=== PATIENT | male | born 1965 | race Caucasian/White ===

== ENCOUNTER → 2020-08-12 08:57 | Outpatient (BNVA) | payer OTHER, SELFPAY | PROVIDERS: PCP Family Medicine; Referring Provider Family Medicine; Visit Provider Psychiatry & Neurology Neurology | DX: Z13.89 Encounter for screening for other disorder (principal) ==

== ENCOUNTER → 2020-08-14 13:00 | Outpatient (REF) | payer OTHER, SELFPAY ==
--- NOTE | 2020-08-14 12:55 | CA_ITS ---
Transthoracic Echocardiogram Patient (Last, First, Middle): Nii Mohan R Gender: Male Date of : 1965 Age: 54 Procedure Date: 08/14/2020 Procedure Type: Transthoracic Echocardiogram Location: OP Height: 190.5 cm Weight: 124.74 kg BSA: 2.51 m2 Heart Rate: bpm BP: 112 / 74 mmHg Last Model Department Supervisor: TIMOTHY Munoz MD: Johnson Coronel MD Chair Maker: Jon Hare MD Symptoms: I48.0 Study Quality: Good ECG Rhythm: Sinus Conclusions: - 1. Moderately dilated left ventricle with mild LV systolic dysfunction with LVEF of 45-50% with grade 1 diastolic dysfunction 2. Normal cardiac valvular Doppler 3. Normal RV systolic pressure 4. No pericardial effusion Findings Left Ventricle Moderately increased left ventricular cavity size. There is normal left ventricular wall thickness. The left ventricular systolic function is mildly decreased. The visually estimated ejection fraction is between 45-50%. Spectral Doppler is indicative of an impaired relaxation filling pattern. E/E prime ratio is <8, consistent with normal filling pressures. Evidence suggests grade I (mild) diastolic dysfunction. Right Ventricle Normal right ventricular cavity size and systolic function. Atria Both atria are normal in size. There is no evidence of interatrial shunt. Aortic Valve Normal aortic valve structure and function. There is no aortic valve stenosis. There is no aortic valve regurgitation. Mitral Valve Normal mitral valve structure and function. There is trace mitral valve regurgitation. There is no mitral valve stenosis. Pulmonic Valve The pulmonic valve was not well visualized. Tricuspid Valve Likely normal tricuspid valve structure and function. There is trace tricuspid valve regurgitation. The right ventricular systolic pressure is normal. The right ventricular systolic pressure is 28 mmHg. Normal right atrial pressure. There is no evidence of pulmonary hypertension. Great Vessels All visible segments of the aorta are normal in size. The pulmonary artery was not well visualized. Venous The inferior vena cava is normal in size. Pericardium/Pleural There is no evidence of pericardial effusion. Prior Study Comparison Changes noted compared to prior study dated: 08/14/2019. LV systolic function has improved Measurements 2D Linear Measurements RVIDd: 3.19 RVIDd Index: 1.27 IVSd: 0.97 0.6-0.9/0.6-1.0 cm LVIDd: 6.83 3.9-5.3/4.2-5.9 cm LVIDd Index: 2.72 2.4-3.2/2.2-3.1 cm/m2 LVIDs: 5.16 2.0-3.6 cm LVPWd: 0.97 0.7-1.1 cm Ao Root: 3.30 2.1-3.5 cm LA Diam: 4.80 2.7-3.8/3.0-4.0 cm LAIDs Index: 1.91 1.5-2.3 cm/m2 LV Mass: 370.87 67-162/88-224 g LV Mass Index: 147.76 43-95/49-115 g/m2 LVOT Diam: 2.70 3.0+(-)1.3 cm 2D Systolic Function EF 4C: 52.60 >55% EF 2C: 42.10 >55% EF BiP: 50.20 >55% Mitral Valve MV Pk E: 0.66 MV PK A: 0.84 MV Decel Time: 144.00 E/A: 0.80 E'Lateral: 9.46 E'Medial: 6.09 E/E' Med: 10.80 E/E' Lat: 6.90 Aortic Valve AoV Pk Alex: 1.26 AoV Mn Alex: 0.93 AoV VTI: 0.25 AoV Pk Grad: 6.00 Aov Mn Grad: 4.00 STELLA Cont.VTI: 3.52 LVOT LVOT Pk Alex: 0.80 LVOT Mn Alex: 0.59 LVOT VTI: 0.15 LVOT Pk Grad: 3.00 LVOT Mn Grad: 2.00 LVOT Diam: 2.70 LVOT Area: 5.73 Diastolic Function MV Pk E: 0.66 MV Pk A: 0.84 E/A: 0.80 E'Medial: 6.09 E/E' Med: 10.80 E' Laterial: 9.46 E/E' Lat: 6.90 Tricuspid Valve TR Pk Alex: 2.24 TR Pk Grad: 20.00 RA Press: 8.00 RVSP: 28.00 Great Vessels Aorta Ao Root-2D: 3.30 2.0-3.7 cm Ao Asc: 3.70 2.1-3.4 cm Ao Arch: 3.10 Updated in Other Vendor System with Status of Final Jon Hare MD electronically signed on 08/15/2020 1:06:44 PM with status of Final
--- NOTE | 2020-08-14 14:00 | ECG_ITS ---
Hook-up date: 2020-08-14 13:48:00 Duration: 25:08:00 Test Indications: PAF Medications: [id number] QRS complexes 99 Ventricular ectopics which represent <1 % of total QRS comp. 26 Supraventricular ectopics which represent <1 % of total QRS comp. * Paced QRS complexs which represent % of total QRS comp. VENTRICULAR ECTOPY 93 Isolated 0 Bigeminal Cycles 1 Couplets 1 Runs 4 Beats in Runs 4 Beats LONGEST at 155 BPM at 05:35:00 2020-08-15 4 Beats FASTEST at 155 BPM at 05:35:00 2020-08-15 SUPRAVENTRICULAR ECTOPY 10 Isolated 0 Couplets 1 Runs 16 Beats in Runs 16 Beats LONGEST at 111 BPM at 15:47:03 2020-08-14 16 Beats FASTEST at 111 BPM at 15:47:03 2020-08-14 HEART RATES 64 MIN at 01:33:04 2020-08-15 84 AVG 128 MAX at 11:34:10 2020-08-15 LONGEST RR 0.9840 secs at 23:06:54 2020-08-14 S-T LEVELS Channel 1 - 128 mm at 13:48:00 2020-08-14 - 128 mm at 13:48:00 2020-08-14 Channel 2 - 128 mm at 13:48:00 2020-08-14 - 128 mm at 13:48:00 2020-08-14 Channel 3 - 128 mm at 03:30:71 -- - 128 mm at 03:30:71 Basic rhythm Normal sinus rhythm No long pause or profound bradycardia No sustained Atrial fibrillation One 4 beats episode of NSVT at 155 bpm No diary submitted Referred By: Johnson Coronel Overread By: GIANLUCA LEMA MD
== END ==
LOC: HO.CARD 13:00
PROVIDERS: Visit Provider Internal Medicine
DX: I48.0 Paroxysmal atrial fibrillation (principal)
CPT/HCPCS: 93225; 93226; 93306

== ENCOUNTER → 2020-09-25 15:15 | Outpatient (BNVA) | payer OTHER, SELFPAY | PROVIDERS: PCP Family Medicine; Visit Provider Internal Medicine | DX: Z76.89 Persons encountering health services in other specified circumstances (principal) ==

== ENCOUNTER → 2020-09-30 20:28 | Outpatient (REF) | payer OTHER, SELFPAY | LOC: HO.SL 20:28 | PROVIDERS: PCP Family Medicine; Visit Provider Psychiatry & Neurology Neurology | DX: G47.00 Insomnia, unspecified (principal); G47.19 Other hypersomnia; G47.9 Sleep disorder, unspecified | CPT/HCPCS: 95810 ==

== ENCOUNTER → 2020-10-28 10:46 | Outpatient (BNVA) | payer OTHER, SELFPAY | PROVIDERS: PCP Family Medicine; Visit Provider Psychiatry & Neurology Neurology ==

== ENCOUNTER → 2020-11-04 08:30 | Outpatient (BNVA) | payer OTHER, SELFPAY | PROVIDERS: PCP Family Medicine; Visit Provider Nurse Practitioner Family ==

== ENCOUNTER → 2020-11-25 09:37 | Outpatient (BNVA) | payer OTHER, SELFPAY | PROVIDERS: PCP Family Medicine; Visit Provider Nurse Practitioner Family ==

== ENCOUNTER → 2020-12-23 11:17 | Outpatient (BNVA) | payer OTHER, SELFPAY | PROVIDERS: PCP Family Medicine; Visit Provider Psychiatry & Neurology Neurology ==

== ENCOUNTER → 2021-02-17 09:51 | Outpatient (BNVA) | payer OTHER, SELFPAY | PROVIDERS: PCP Family Medicine; Visit Provider Nurse Practitioner Family ==

== ENCOUNTER → 2021-03-19 13:00 | Outpatient (REF) | payer OTHER, SELFPAY ==
--- NOTE | 2021-03-19 13:03 | CA_ITS ---
Transthoracic Echocardiogram Patient (Last, First, Middle): Nii Mohan R Gender: Male Date of : 1965 Age: 55 Procedure Date: 03/19/2021 Procedure Type: Transthoracic Echocardiogram Location: OP Height: 190.5 cm Weight: 124.74 kg BSA: 2.51 m2 Heart Rate: bpm BP: 123 / 78 mmHg Raw Stock Drier Tender: PARUL Referring MD: Johnson Coronel MD [employer] Shop Machine Repairer: Jon Hare MD Symptoms: I42.8 - Other cardiomyopathies Study Quality: Fair ECG Rhythm: Sinus Conclusions: - 1. Moderately dilated left ventricle with moderate LV systolic dysfunction with LVEF of 35-40% with impaired relaxation filling pattern 2. Mildly dilated left atrium 3. Normal cardiac valvular Doppler 4. No gross pericardial effusion Findings Left Ventricle Moderately increased left ventricular cavity size. There is normal left ventricular wall thickness. The left ventricular systolic function is moderately decreased. The visually estimated ejection fraction is between 35 40%. There is moderate global hypokinesis. Spectral Doppler is indicative of an impaired relaxation filling pattern. E/E prime ratio is between 8 and 15 consistent with indeterminate filling pressures. Right Ventricle Normal right ventricular cavity size and systolic function. Atria The left atrium is mildly dilated. There is no evidence of interatrial shunt. The right atrium is normal in size. Aortic Valve The aortic valve structure and function is likely normal. There is no aortic valve stenosis. There is no aortic valve regurgitation. Mitral Valve Normal mitral valve structure and function. There is no mitral valve regurgitation. There is no mitral valve stenosis. Pulmonic Valve The pulmonic valve was not well visualized. Tricuspid Valve Likely normal tricuspid valve structure and function. Tricuspid regurgitation envelope is inadequate for calculation of right ventricular systolic pressure. Great Vessels All visible segments of the aorta are normal in size. The pulmonary artery was not well visualized. Venous The inferior vena cava is normal in size and collapses greater than 50% with inspiration. Pericardium/Pleural There is no evidence of pericardial effusion. Prior Study Comparison Changes noted compared to prior study dated: 08/14/2020. LV systolic function has reduced Measurements M-Mode Liner Measurements Normals - Women/Men AOV Cusps: 2.30 1.5-2.6 cm/m2 2D Linear Measurements IVSd: 0.93 0.6-0.9/0.6-1.0 cm LVIDd: 7.01 3.9-5.3/4.2-5.9 cm LVIDd Index: 2.79 2.4-3.2/2.2-3.1 cm/m2 LVIDs: 6.22 2.0-3.6 cm LVPWd: 0.96 0.7-1.1 cm Ao Root: 3.20 2.1-3.5 cm LA Diam: 4.30 2.7-3.8/3.0-4.0 cm LAIDs Index: 1.71 1.5-2.3 cm/m2 LV Mass: 374.67 67-162/88-224 g LV Mass Index: 149.27 43-95/49-115 g/m2 LVOT Diam: 2.60 3.0+(-)1.3 cm 2D Systolic Function EF 4C: 35.50 >55% EF 2C: 27.50 >55% Mitral Valve MV Pk E: 0.74 MV PK A: 1.10 MV Decel Time: 264.00 E/A: 0.70 E'Lateral: 7.72 E'Medial: 6.42 E/E' Med: 11.50 E/E' Lat: 9.60 PHT: 77.00 MVA PHT: 2.86 Decel [place]: 2.81 Aortic Valve AoV Pk Alex: 1.55 AoV Mn Alex: 1.12 AoV VTI: 0.31 AoV Pk Grad: 10.00 Aov Mn Grad: 6.00 STELLA Cont.VTI: 2.71 LVOT LVOT Pk Alex: 0.75 LVOT Mn Alex: 0.59 LVOT VTI: 0.16 LVOT Pk Grad: 2.00 LVOT Mn Grad: 1.00 LVOT Diam: 2.60 LVOT Area: 5.31 Diastolic Function MV Pk E: 0.74 MV Pk A: 1.10 E/A: 0.70 E'Medial: 6.42 E/E' Med: 11.50 E' Laterial: 7.72 E/E' Lat: 9.60 Tricuspid Valve RA Press: 3.00 Great Vessels Aorta Ao Root-2D: 3.20 2.0-3.7 cm Ao Asc: 3.70 2.1-3.4 cm Pulmonary Valve PV Pk Alex: 1.26 Peak PV Grad: 6.00 Updated in Other Vendor System with Status of Final Jon Hare MD electronically signed on 03/20/2021 5:19:27 PM with status of Final
--- NOTE | 2021-03-19 13:03 | ECG_ITS ---
Hook-up date: 2021-03-19 13:44:00 Duration: 24:13:00 Test Indications: PAF Medications: [id number] QRS complexes 237 Ventricular ectopics which represent <1 % of total QRS comp. 95 Supraventricular ectopics which represent <1 % of total QRS comp. * Paced QRS complexs which represent % of total QRS comp. VENTRICULAR ECTOPY 235 Isolated 0 Bigeminal Cycles 1 Couplets 0 Runs 0 Beats in Runs * Beats LONGEST at * BPM at :: -- * Beats FASTEST at * BPM at :: -- SUPRAVENTRICULAR ECTOPY 95 Isolated 0 Couplets 0 Runs 0 Beats in Runs * Beats LONGEST at * BPM at :: -- * Beats FASTEST at * BPM at :: -- HEART RATES 62 MIN at 01:18:43 2021-03-20 85 AVG 127 MAX at 18:52:31 2021-03-19 LONGEST RR 1.0000 secs at 04:38:20 2021-03-20 S-T LEVELS Channel 1 - 128 mm at 13:44:00 2021-03-19 - 128 mm at 13:44:00 2021-03-19 Channel 2 - 128 mm at 13:44:00 2021-03-19 - 128 mm at 13:44:00 2021-03-19 Channel 3 - 128 mm at 03:30:31 -- - 128 mm at 03:30:31 Basic rhythm Normal sinus rhythm No long pause or profound bradycardia Occasional Premature ventricular complexes No sustained Atrial fibrillation Patient did not report any symptoms in the diary Referred By: Johnson Coronel Overread By: GIANLUCA LEMA MD
== END ==
LOC: HO.CARD 13:00
PROVIDERS: Visit Provider Internal Medicine
DX: I48.0 Paroxysmal atrial fibrillation (principal); I42.8 Other cardiomyopathies
CPT/HCPCS: 93225; 93226; 93306

== ENCOUNTER → 2021-03-31 14:59 | Outpatient (BNVA) | payer OTHER, SELFPAY | PROVIDERS: PCP Family Medicine; Referring Provider Family Medicine; Visit Provider Internal Medicine | DX: I48.0 Paroxysmal atrial fibrillation (principal); I42.8 Other cardiomyopathies; G47.33 Obstructive sleep apnea (adult) (pediatric); Z99.89 Dependence on other enabling machines and devices | CPT/HCPCS: 93005 ==

== ENCOUNTER → 2021-06-30 08:21 | Outpatient (BNVA) | payer OTHER, SELFPAY | PROVIDERS: PCP Internal Medicine; Visit Provider Psychiatry & Neurology Neurology ==

== ENCOUNTER → 2021-07-21 08:43 | Outpatient (BNVA) | payer OTHER, SELFPAY | PROVIDERS: PCP Internal Medicine; Visit Provider Psychiatry & Neurology Neurology ==

== ENCOUNTER → 2021-09-30 13:44 | Outpatient (BNVA) | payer OTHER, SELFPAY | PROVIDERS: PCP Internal Medicine; Visit Provider Internal Medicine | DX: I48.0 Paroxysmal atrial fibrillation (principal); I42.8 Other cardiomyopathies; G47.33 Obstructive sleep apnea (adult) (pediatric); U09.9 Post COVID-19 condition, unspecified; R06.09 Other forms of dyspnea; Z99.89 Dependence on other enabling machines and devices | CPT/HCPCS: 93005 ==

== ENCOUNTER → 2021-11-18 14:54 | Outpatient (BNVA) | payer OTHER, SELFPAY | PROVIDERS: PCP Internal Medicine; Visit Provider Internal Medicine | DX: I48.0 Paroxysmal atrial fibrillation (principal); I42.8 Other cardiomyopathies; G47.33 Obstructive sleep apnea (adult) (pediatric); R06.09 Other forms of dyspnea; U09.9 Post COVID-19 condition, unspecified; Z99.89 Dependence on other enabling machines and devices | CPT/HCPCS: 93005 ==

== ENCOUNTER → 2022-01-19 13:55 | Outpatient (REF) | payer OTHER, SELFPAY ==
--- NOTE | 2022-01-19 13:59 | CA_ITS ---
Transthoracic Echocardiogram Patient (Last, First, Middle): Nii Mohan R Gender: Male Date of : 1965 Age: 56 Procedure Date: 01/19/2022 Procedure Type: Transthoracic Echocardiogram Location: OP Height: 190.5 cm Weight: 120.2 kg BSA: 2.47 m2 Heart Rate: bpm BP: 90 / 62 mmHg Laundry Aide: TIARRA Referring MD: Johnson Coronel MD Symptoms: I42.8 - Other cardiomyopathies Study Quality: Fair ECG Rhythm: Sinus Conclusions: - The left ventricular systolic function is severely decreased. The visually estimated ejection fraction is between 20-25%. - Evidence suggests grade III (severe) diastolic dysfunction. - There is low normal right ventricular systolic function. - Mild pulmonary hypertension is present. Findings Left Ventricle Moderately increased left ventricular cavity size. There is normal left ventricular wall thickness. The left ventricular systolic function is severely decreased. The visually estimated ejection fraction is between 20 25%. There is severe global hypokinesis. E/E prime ratio is >15, consistent with elevated filling pressures. Evidence suggests grade III (severe) diastolic dysfunction. Right Ventricle Normal right ventricular cavity size. There is low normal right ventricular systolic function. Atria Both atria are normal in size. Aortic Valve There is a normal trileaflet aortic valve. There is no aortic valve stenosis. There is no aortic valve regurgitation. Mitral Valve The mitral valve appears normal. There is mild mitral valve regurgitation. There is no mitral valve stenosis. Pulmonic Valve The pulmonic valve was not well visualized. Tricuspid Valve There is trace tricuspid valve regurgitation. The right ventricular systolic pressure is 38 mmHg. Mild pulmonary hypertension is present. Great Vessels The asc aorta is normal in size. Venous The inferior vena cava was not well visualized. Pericardium/Pleural There is no evidence of pericardial effusion. Prior Study Comparison Changes noted compared to prior study dated: 03/19/2021. LVEF is lower. Measurements M-Mode Liner Measurements Normals - Women/Men LVIDd: 7.53 3.9-5.3/4.2-5.9 cm LVIDd Index: 3.05 1.9-3.2 cm/m2 LVIDs: 6.05 2.0-3.8 cm M-Mode Volumes LV EDV: 301.00 LV ESV: 183.00 2D Linear Measurements IVSd: 0.96 0.6-0.9/0.6-1.0 cm LVIDd: 7.17 3.9-5.3/4.2-5.9 cm LVIDd Index: 2.90 2.4-3.2/2.2-3.1 cm/m2 LVIDs: 5.70 2.0-3.6 cm LVPWd: 1.03 0.7-1.1 cm LA Diam: 5.10 2.7-3.8/3.0-4.0 cm LAIDs Index: 2.06 1.5-2.3 cm/m2 LV Mass: 417.02 67-162/88-224 g LV Mass Index: 168.83 43-95/49-115 g/m2 LVOT Diam: 2.70 3.0+(-)1.3 cm 2D Systolic Function EF 4C: 32.80 >55% EF 2C: 27.90 >55% M-Mode Systolic Function FS: 19.70 27-47/25-43% Mitral Valve MV Pk E: 1.29 MV PK A: 0.44 MV Decel Time: 103.00 E/A: 2.90 E'Lateral: 8.92 E'Medial: 4.03 E/E' Med: 32.00 E/E' Lat: 14.50 PHT: 30.00 MVA PHT: 7.33 Decel [place]: 12.52 MR Vol - PW Dopp: 17.70 MR VTI: 1.18 MR ERO: 15.00 MR Alias Alex: 0.27 MR RAD: 0.60 Aortic Valve AoV Pk Alex: 1.00 AoV Pk Grad: 4.00 LVOT LVOT Pk Alex: 0.69 LVOT Mn Alex: 0.45 LVOT VTI: 0.13 LVOT Pk Grad: 2.00 LVOT Mn Grad: 1.00 LVOT Diam: 2.70 LVOT Area: 5.73 Diastolic Function MV Pk E: 1.29 MV Pk A: 0.44 E/A: 2.90 E'Medial: 4.03 E/E' Med: 32.00 E' Laterial: 8.92 E/E' Lat: 14.50 Right Ventricle TAPSE (mm): 2.01 TVS' Alex: 12.90 Tricuspid Valve TR Pk Alex: 2.95 TR Pk Grad: 35.00 RA Press: 3.00 RVSP: 38.00 Great Vessels Aorta Sinus of Valsalva: 3.60 2.0-3.5 cm Ao Asc: 3.30 2.1-3.4 cm Updated in Other Vendor System with Status of Final Johnson Coronel MD electronically signed on 01/20/2022 9:51:41 AM with status of Final
--- NOTE | 2022-01-19 13:59 | HM_ITS ---
Conclusion: 1. Patient was monitored for total period of 5 days and 19 hours 2. Baseline was normal sinus rhythm with average heart rate of 99 beats per minute 3. 74 episodes of short burst of wide complex rhythm consistent with nonsustained VT longest lasting 11 beats at 200 beats per minute, consistent with frequent episodes of nonsustained VT 4. Twenty episodes of supraventricular tachycardia, longest lasting 9 beats 5. Total of 46,134 PVCs accounting for 5.4% total burden account for frequent PVCs 6. One patient reported event correlated MTDD
== END ==
LOC: HO.CARD 13:55
PROVIDERS: PCP Internal Medicine; Visit Provider Internal Medicine
DX: I42.8 Other cardiomyopathies (principal)
CPT/HCPCS: 93242; 93306

== ENCOUNTER 2022-02-05 10:14 | Outpatient (REF) | payer OTHER, SELFPAY ==
[2022-02-05 11:54] LABS: Anion Gap 12 (12-20); Blood Urea Nitrogen 22 mg/dL (9-16); Carbon Dioxide 27 mmol/L (22-29); Chloride 107 mmol/L (96-108); Estimated Glomerular Filt Rate 43; Glucose Random 79 mg/dL (60-115); Magnesium 2.2 mg/dL (1.6-2.6); Potassium 4.5 mmol/L (3.3-5.1); Sodium 141 mmol/L (135-145)
== END 2022-02-05 10:15 | disposition home or self-care (01) ==
LOC: HO.LAB 10:14
PROVIDERS: Visit Provider Nurse Practitioner Family
DX: I47.2 Ventricular tachycardia (principal)
CPT/HCPCS: 36415; 80048; 83735

== ENCOUNTER 2022-02-08 12:41 | Outpatient (REF) | payer OTHER, SELFPAY ==
[2022-02-08 15:06] LABS: Anion Gap 12 (12-20); Blood Urea Nitrogen 22 mg/dL (9-16); Calcium 9.7 mg/dL (8.4-10.2); Carbon Dioxide 22 mmol/L (22-29); Chloride 110 mmol/L (96-108); Estimated Glomerular Filt Rate 48; Glucose Random 85 mg/dL (60-115); Potassium 4.6 mmol/L (3.3-5.1); Sodium 139 mmol/L (135-145)
[2022-02-08 15:08] LABS: B Type Natriuretic Peptide 1669 pg/mL (<100)
[2022-02-08 15:18] LABS: D Dimer High Sensitivity < 150 NG/ML
== END 2022-02-08 12:42 | disposition home or self-care (01) ==
LOC: HO.LAB 12:41
PROVIDERS: PCP Internal Medicine; Visit Provider Nurse Practitioner Family
DX: R06.02 Shortness of breath (principal); R06.00 Dyspnea, unspecified; U09.9 Post COVID-19 condition, unspecified; G47.33 Obstructive sleep apnea (adult) (pediatric); I42.8 Other cardiomyopathies; I48.0 Paroxysmal atrial fibrillation; Z98.890 Other specified postprocedural states; Z99.89 Dependence on other enabling machines and devices; Z79.899 Other long term (current) drug therapy
CPT/HCPCS: 36415; 80048; 83880; 85379; 93005

== ENCOUNTER 2022-02-09 09:57 | Emergency (ER) | payer OTHER, SELFPAY ==
--- NOTE | ~2022-02-09 | XR_ITS ---
EXAMINATION: XR CHEST CLINICAL INFORMATION: Shortness breath COMPARISON: None TECHNIQUE: 2 views of the chest were obtained. FINDINGS: Cardiomegaly. Pulmonary vascularity within normal limits. No parenchymal consolidation, pulmonary edema or pleural effusion. No pneumothorax. No acute or suspicious osseous abnormalities. XR/XR chest 2V IMPRESSION: No acute findings. Cardiomegaly without evidence of decompensated heart failure.
[2022-02-09 10:15] VITALS: BP 98/74; PULSE 93; RESP 19; TEMP 36.6; O2SAT 95; BMI 34.2
--- NOTE | 2022-02-09 10:18 | ECG_ITS ---
Test Reason : sob Blood Pressure : / mmHG Vent. Rate : 090 BPM Atrial Rate : 090 BPM P-R Int : 196 ms QRS Dur : 098 ms QT Int : 400 ms P-R-T Axes : 032 -38 002 degrees QTc Int : 489 ms Normal sinus rhythm Left axis deviation Inferior infarct , age undetermined Anterior infarct (cited on or before 06-NOV-2019) Abnormal ECG When compared with ECG of 30-JAN-2020 10:27, No significant change was found Referred By: Generic ED Physician Electronically Signed By:GIANLUCA LEMA MD
[2022-02-09 10:50] LABS: MANUAL DIFF FLAG NO
[2022-02-09 11:06] LABS: Prothrombin Time 23.6 SEC (9.9-13.0)
[2022-02-09 11:11] LABS: Alanine Aminotransferase 39 U/L (0-40); Albumin Level 4.1 g/dL (3.5-5.0); Alkaline Phosphatase 58 U/L (39-117); Anion Gap 12 (12-20); Aspartate Amino Transferase 22 U/L (5-37); Bilirubin Direct 0.3 mg/dL (0.0-0.5); Bilirubin Total 0.9 mg/dL (0.0-1.0); Blood Urea Nitrogen 22 mg/dL (9-16); Calcium 9.6 mg/dL (8.4-10.2); Carbon Dioxide 23 mmol/L (22-29); Chloride 108 mmol/L (96-108); Creatinine Clr Calc Pharmacy 83.2; Estimated Glomerular Filt Rate 53; Glucose Random 101 mg/dL (60-115); Potassium 4.7 mmol/L (3.3-5.1); Sodium 138 mmol/L (135-145); Total Protein 6.4 g/dL (6.5-8.0)
[2022-02-09 11:17] LABS: Basophils Percent Auto 0.5 % (0-2); Eosinophils Absolute Auto 0.2 X10*3/uL (0.0-0.4); Eosinophils Percent Auto 3.9 % (0-4); Hematocrit 45.4 % (42.0-52.0); Hemoglobin 14.9 g/dl (14.0-18.0); Imm Gran Abs Auto 0.01 X10*3/uL (0.00-0.03); Imm Gran Pct Auto 0.2 % (0.0-0.4); Lymphocytes Absolute Auto 1.1 X10*3/uL (1.2-4.9); Lymphocytes Percent Auto 27.1 % (20-40); Mean Corpuscular HGB Conc 32.8 g/dl (31.0-36.0); Mean Corpuscular Hemoglobin 29.1 pg (27.0-33.0); Mean Corpuscular Volume 88.7 fL (80.0-98.0); Mean Platelet Volume 11.5 fL (9.4-12.4); Monocytes Absolute Auto 0.5 X10*3/uL (0.1-1.2); Monocytes Percent Auto 11.1 % (2-11); Neutrophils Absolute Auto 2.3 x10*3/uL (2.0-8.3); Neutrophils Percent Auto 57.2 % (45-73); Platelet Count 208 X10*3/uL (160-400); Red Blood Count 5.12 X10*6/uL (4.60-5.80); Red Cell Distribution Width 13.2 % (11.0-16.0); White Blood Count 4.1 X10*3/uL (4.8-10.8)
[2022-02-09 11:19] LABS: B Type Natriuretic Peptide 1705 pg/mL (<100); Troponin-I High Sensitivity 9.3 ng/L (<3.5-35.0)
== END 2022-02-09 16:55 | disposition left against medical advice (07) ==
PROVIDERS: Emergency Provider Emergency Medicine; PCP Internal Medicine
DX: R06.02 Shortness of breath (principal); Z79.899 Other long term (current) drug therapy
CPT/HCPCS: 36415; 71046; 80048; 80076; 83880; 84484; 85025; 85610; 93005; 99283

== ENCOUNTER → 2022-02-11 14:27 | Outpatient (BNVA) | payer OTHER, SELFPAY | PROVIDERS: PCP Internal Medicine; Visit Provider Internal Medicine | DX: I47.2 Ventricular tachycardia (principal) ==

== ENCOUNTER 2022-02-12 10:10 | Outpatient (REF) | payer OTHER, SELFPAY ==
--- NOTE | ~2022-02-12 | CT_ITS ---
EXAMINATION: CT CHEST WITHOUT CONTRAST CLINICAL INFORMATION: Shortness of breath COMPARISON: Previous chest x-ray February 2020 TECHNIQUE: Multidetector volumetric CT imaging of the chest was done. Axial MIP volume rendering provided. Sagittal and coronal reformatted images were obtained. This CT examination was performed using dose optimization techniques as appropriate, variously including the following: *Automated exposure control *Adjustment of mA and/or kV according to patient size (this includes techniques or standardized protocols for targeted exams where dose is matched to indication/reason for exam; i.e. extremities or head) *Use of iterative reconstruction technique DLP: 265 mGy-cm FINDINGS: LUNGS: There is mild diffuse groundglass attenuation seen throughout the lungs. There is a small semisolid right upper lobe nodule measuring 3 mm axial image 110 series 8. No increased interstitial markings are seen. No evidence of bronchiectasis. MEDIASTINUM: The heart is enlarged. There is a trace pericardial effusion. The thoracic aorta is normal in caliber. There is diffuse mediastinal lymphadenopathy larger lymph nodes are upper normal in size. Evaluation for hilar adenopathy is limited without IV contrast and there may be small bilateral hilar lymph nodes as well. PLEURA: There is no pleural effusion. No pleural mass or thickening. AXILLA: No lymphadenopathy. UPPER ABDOMEN: There may be diverticulosis of the colon. OSSEOUS STRUCTURES: There are degenerative changes of the spine. CT/CT chest wo con IMPRESSION: Enlarged heart. Diffuse increased groundglass attenuation in the lungs. Chest CT appearance is nonspecific but most suggestive of pneumonitis. Diffuse mediastinal lymphadenopathy. Fleischner guidelines were followed.
== END 2022-02-12 10:11 | disposition home or self-care (01) ==
LOC: HO.CT 10:10
PROVIDERS: Visit Provider Nurse Practitioner Family
DX: R06.02 Shortness of breath (principal); R06.09 Other forms of dyspnea; U09.9 Post COVID-19 condition, unspecified
CPT/HCPCS: 71250

== ENCOUNTER 2022-02-17 08:56 | Outpatient (REF) | payer OTHER, SELFPAY ==
[2022-02-17 09:59] LABS: MANUAL DIFF FLAG NO
[2022-02-17 10:35] LABS: Basophils Percent Auto 0.1 % (0-2); Eosinophils Percent Auto 0.1 % (0-4); Hematocrit 47.9 % (42.0-52.0); Hemoglobin 15.5 g/dl (14.0-18.0); Imm Gran Abs Auto 0.03 X10*3/uL (0.00-0.03); Imm Gran Pct Auto 0.4 % (0.0-0.4); Lymphocytes Absolute Auto 0.9 X10*3/uL (1.2-4.9); Lymphocytes Percent Auto 12.5 % (20-40); Mean Corpuscular HGB Conc 32.4 g/dl (31.0-36.0); Mean Corpuscular Hemoglobin 28.9 pg (27.0-33.0); Mean Corpuscular Volume 89.4 fL (80.0-98.0); Mean Platelet Volume 11.1 fL (9.4-12.4); Monocytes Absolute Auto 0.5 X10*3/uL (0.1-1.2); Monocytes Percent Auto 7.4 % (2-11); Neutrophils Absolute Auto 5.4 x10*3/uL (2.0-8.3); Neutrophils Percent Auto 79.5 % (45-73); Platelet Count 271 X10*3/uL (160-400); Red Blood Count 5.36 X10*6/uL (4.60-5.80); Red Cell Distribution Width 13.5 % (11.0-16.0); White Blood Count 6.9 X10*3/uL (4.8-10.8)
[2022-02-17 11:16] LABS: Erythrocyte Sedimentation Rate 2 MM/HR (0-15)
[2022-02-19 15:01] LABS: Anti Nuclear Antibody Screen NEGATIVE (NEGATIVE)
[2022-02-19 20:57] LABS: Immunoglobulin E 21 kU/L (<OR=114)
[2022-02-23 02:37] LABS: Angiotensin Converting Enzyme 5 U/L (9-67)
[2022-02-24 18:25] LABS: Asperg fumigatus Precip Abs NEGATIVE (NEGATIVE); Micropoly faeni Abs NEGATIVE (NEGATIVE); Pigeon serum Abs NEGATIVE (NEGATIVE); Saccharo pora viridis Abs NEGATIVE (NEGATIVE); Thermo candidus Abs NEGATIVE (NEGATIVE); Thermoa vulgaris #1 NEGATIVE (NEGATIVE)
== END 2022-02-17 08:57 | disposition home or self-care (01) ==
LOC: HO.LAB 08:56
PROVIDERS: PCP Internal Medicine; Visit Provider Hospitalist
DX: J18.9 Pneumonia, unspecified organism (principal); R91.8 Other nonspecific abnormal finding of lung field
CPT/HCPCS: 36415; 82164; 82785; 85025; 85652; 86038; 86039; 86331; 86606; 86609; 94618

== ENCOUNTER 2022-03-03 13:07 | Outpatient (REF) | payer OTHER, SELFPAY ==
[2022-03-03 14:20] LABS: Hematocrit 47.6 % (42.0-52.0); Hemoglobin 15.7 g/dl (14.0-18.0); Mean Corpuscular Hemoglobin 29.5 pg (27.0-33.0); Mean Corpuscular Volume 89.3 fL (80.0-98.0); Mean Platelet Volume 10.8 fL (9.4-12.4); Platelet Count 224 X10*3/uL (160-400); Red Blood Count 5.33 X10*6/uL (4.60-5.80); White Blood Count 5.9 X10*3/uL (4.8-10.8)
[2022-03-03 14:28] LABS: INTERNATIONAL NORM RATIO 1.2 (0.9-1.1)
[2022-03-03 14:45] LABS: Anion Gap 12 (12-20); Blood Urea Nitrogen 20 mg/dL (9-16); Carbon Dioxide 23 mmol/L (22-29); Chloride 107 mmol/L (96-108); Estimated Glomerular Filt Rate > 60; Glucose Random 108 mg/dL (60-115); Potassium 4.6 mmol/L (3.3-5.1); Sodium 137 mmol/L (135-145)
[2022-03-03 14:46] LABS: B Type Natriuretic Peptide 1277 pg/mL (<100)
== END 2022-03-03 13:08 | disposition home or self-care (01) ==
LOC: HO.LAB 13:07
PROVIDERS: PCP Internal Medicine; Visit Provider Internal Medicine
DX: I50.43 Acute on chronic combined systolic (congestive) and diastolic (congestive) heart failure (principal); I47.2 Ventricular tachycardia; I48.0 Paroxysmal atrial fibrillation; R06.09 Other forms of dyspnea; U09.9 Post COVID-19 condition, unspecified; G47.33 Obstructive sleep apnea (adult) (pediatric); Z99.89 Dependence on other enabling machines and devices
CPT/HCPCS: 36415; 80048; 83880; 85027; 85610

== ENCOUNTER → 2022-03-05 07:40 | Outpatient (REF) | payer OTHER, SELFPAY ==
--- NOTE | 2022-03-05 07:43 | CA_ITS ---
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 Study Quality: Fair/Contrast ECG Rhythm: Sinus Conclusions: - Limited echo. - Severely increased left ventricular cavity size. There is normal left ventricular wall thickness. The left ventricular systolic function is severely decreased. The visually estimated ejection fraction is between 10-15%. - Mildly increased right ventricular cavity size. There is borderline right ventricular systolic function. Findings Procedure Information Contrast agent, definity, is being given per protocol without apparent complications. Left Ventricle Severely increased left ventricular cavity size. There is normal left ventricular wall thickness. The left ventricular systolic function is severely decreased. The visually estimated ejection fraction is between 10 15%. Diastolic function is indeterminate on the basis of available data. Right Ventricle Mildly increased right ventricular cavity size. There is borderline right ventricular systolic function. Tricuspid Valve Moderately elevated right atrial pressure. Mild pulmonary hypertension is present. Venous The inferior vena cava is dilated and collapses less than 50% with inspiration. Pericardium/Pleural There is no evidence of pericardial effusion. Prior Study Comparison Significant changes compared to prior study dated: 01/19/2022. EF 10-15% Measurements 2D Linear Measurements IVSd: 0.73 0.6-0.9/0.6-1.0 cm LVIDd: 7.25 3.9-5.3/4.2-5.9 cm LVIDd Index: 2.94 2.4-3.2/2.2-3.1 cm/m2 LVIDs: 6.17 2.0-3.6 cm LVPWd: 0.85 0.7-1.1 cm LA Diam: 5.60 2.7-3.8/3.0-4.0 cm LAIDs Index: 2.27 1.5-2.3 cm/m2 LV Mass: 317.74 67-162/88-224 g LV Mass Index: 128.64 43-95/49-115 g/m2 2D Systolic Function EF 4C: 14.00 >55% EF 2C: 14.50 >55% EF BiP: 9.29 >55% Right Ventricle TAPSE (mm): 18.00 TVS' Alex: 9.90 Tricuspid Valve TR Pk Alex: 3.00 TR Pk Grad: 36.00 RA Press: 8.00 RVSP: 44.00 Updated in Other Vendor System with Status of Final Buddy Chavez MD electronically signed on 03/08/2022 2:48:11 PM with status of Final
== END ==
LOC: HO.CARD 07:40
PROVIDERS: PCP Internal Medicine; Visit Provider Internal Medicine
DX: I50.43 Acute on chronic combined systolic (congestive) and diastolic (congestive) heart failure (principal); I49.9 Cardiac arrhythmia, unspecified
CPT/HCPCS: 93308; Q9957

== ENCOUNTER 2022-03-12 12:55 | Outpatient (REF) | payer OTHER, SELFPAY ==
--- NOTE | 2022-03-12 17:18 | PFT_ITS ---
Forced vital capacity 80%, FEV1 88%, FEV1/FVC ratio is 84, FEF 25-75 127%, and MVV is 92%. Postbronchodilator therapy, there is no significant change. Total lung capacity is 77%. Residual volume 65%. Diffusion capacity 83%. CONCLUSION: Possible mild restrictive disorder. No obstructive airway disorder. No clinical correlation recommended. MD MONTEZ Vega/MODL / [id number]
== END 2022-03-12 12:56 | disposition home or self-care (01) ==
LOC: HO.RESP 12:55
PROVIDERS: PCP Internal Medicine; Visit Provider Hospitalist
DX: J18.9 Pneumonia, unspecified organism (principal); R06.00 Dyspnea, unspecified
CPT/HCPCS: 94060; 94727; 94729

== ENCOUNTER 2022-04-01 14:11 | Outpatient (REF) | payer OTHER, SELFPAY ==
--- NOTE | ~2022-04-01 | XR_ITS ---
EXAMINATION: XR CHEST CLINICAL INFORMATION: J18.9 - Pneumonia, unspecified organism COMPARISON: Chest radiographs 02/09/2022, CT chest noncontrast 02/12/2022. TECHNIQUE: 2 views of the chest were obtained. FINDINGS: The cardiopericardial silhouette appears decreased from prior study 02/09/2022. Cardiothoracic ratio is approximately 19/36 compared with prior ratio 21/34. The vascularity is normal. There is no Cabrera B lines or engorgement of the central vasculature. No airspace consolidation or groundglass opacity. The costophrenic sulci are clear. No effusion. Again, there are multilevel mild degenerative changes thoracic spine. XR/XR chest 2V IMPRESSION: -Cardiopericardial silhouette decreased from prior study 02/09/2022. -Vascularity normal. Lungs grossly clear.
== END 2022-04-01 14:12 | disposition home or self-care (01) ==
LOC: HO.XRAY 14:11
PROVIDERS: PCP Internal Medicine; Visit Provider Hospitalist
DX: J18.9 Pneumonia, unspecified organism (principal)
CPT/HCPCS: 71046

== ENCOUNTER 2022-05-27 14:43 | Outpatient (REF) | payer OTHER, SELFPAY ==
--- NOTE | ~2022-05-27 | CT_ITS ---
EXAMINATION: CT CHEST WITHOUT CONTRAST CLINICAL INFORMATION: Pneumonia. COMPARISON: Chest x-ray 03/29/2022. CT chest 02/12/2022 TECHNIQUE: Multidetector volumetric CT imaging of the chest was done. Axial MIP volume rendering provided. Sagittal and coronal reformatted images were obtained. This CT examination was performed using dose optimization techniques as appropriate, variously including the following: *Automated exposure control *Adjustment of mA and/or kV according to patient size (this includes techniques or standardized protocols for targeted exams where dose is matched to indication/reason for exam; i.e. extremities or head) *Use of iterative reconstruction technique DLP: 273 mGy-cm FINDINGS: SET PAINTER: Unremarkable. LUNGS: The lungs are well-expanded mild groundglass haziness in both upper lobes and lower lobes. Minimal atelectatic changes are seen in both lung bases. There is a 3 mm nodule right upper lobe lateral segment image 132/7, stable, 2 mm nodule right upper lobe image 177/7, focal 5 mm nodular thickening along superior right major fissure/right lower lobe axial image 243/7. MEDIASTINUM: The thyroid lobes are symmetric and normal. The central trachea and the bronchi widely patent. Heart size there is enlarged. The great vessels are normal caliber. There are numerous para-aortic and precarinal lymph nodes the largest para-aortic lymph node measures 9 mm in short axis and benign-appearing pretracheal lymph node measures 1.3 cm on axial image 23/3. PLEURA: There is a small right pleural effusion. No pleural thickening, calcification seen. AXILLA: Small shotty lymph nodes are seen in bilateral axilla. UPPER ABDOMEN: Visualized liver, spleen, pancreas and bilateral adrenal glands are unremarkable. There is a peripelvic cyst upper pole left kidney OSSEOUS STRUCTURES: There is mild ventral spondylosis dorsal spine. No lytic or sclerotic process seen. CT/CT chest wo con IMPRESSION: Fused unless attenuation seen throughout both lungs, stable. Small pulmonary are stable. No acute consolidation seen. Diffuse mediastinal lymphadenopathy is stable. Fleischner guidelines were followed.
== END 2022-05-27 14:44 | disposition home or self-care (01) ==
LOC: HO.CT 14:43
PROVIDERS: Visit Provider Hospitalist
DX: J18.9 Pneumonia, unspecified organism (principal)
CPT/HCPCS: 71250

== ENCOUNTER 2022-07-02 08:21 | Outpatient (REF) | payer OTHER, SELFPAY ==
--- NOTE | ~2022-07-02 | FL_ITS ---
EXAMINATION: FL BARIUM SWALLOW CLINICAL INFORMATION: Early satiety. COMPARISON: Previous chest CTs, most recent 05/27/2022. TECHNIQUE: Barium swallow examination was performed using fluoroscopic evaluation in addition to multiple fluoroscopic spot views. The patient was imaged both upright and prone and using both thick and thin sulfate along with effervescent granules. A barium tablet was also administered. Fluoroscopy time: 2 minutes DAP: 18 Gycm2 Images: 63 FINDINGS: The swallowing mechanism is normal. No aspiration or penetration is seen. When the patient is upright, there is apparent narrowing of the distal thoracic esophagus. This was not appreciated on FAIR imaging or imaging in other positions and likely represents mass effect on the esophagus, possibly from the enlarged heart when compared previous CT. There is mild mucosal irregularity suggestive of esophagitis. Esophageal motility is normal. No reflux is seen. No hernia is seen. Barium tablet passed freely into the stomach. The visualized stomach and duodenum are unremarkable. FL/FL barium swallow IMPRESSION: Mild esophagitis of the distal thoracic esophagus. There is narrowing of the distal thoracic esophagus seen with the patient upright not reproducible with images in other positions, suggestive of mass effect on the esophagus from the enlarged heart.
== END 2022-07-02 08:22 | disposition home or self-care (01) ==
LOC: HO.XRAY 08:21
PROVIDERS: Visit Provider Internal Medicine
DX: R68.81 Early satiety (principal)
CPT/HCPCS: 74220

== ENCOUNTER → 2022-08-25 14:37 | Outpatient (BNVA) | payer OTHER, SELFPAY | PROVIDERS: PCP Internal Medicine; Visit Provider Internal Medicine | DX: I47.20 Ventricular tachycardia, unspecified (principal); I42.8 Other cardiomyopathies; I48.0 Paroxysmal atrial fibrillation; I50.42 Chronic combined systolic (congestive) and diastolic (congestive) heart failure; G47.33 Obstructive sleep apnea (adult) (pediatric); Z98.890 Other specified postprocedural states; Z79.01 Long term (current) use of anticoagulants; Z99.89 Dependence on other enabling machines and devices | CPT/HCPCS: 93005 ==